=== PATIENT | female | born 1970 | race Two or more races ===

== ENCOUNTER → 2016-11-29 | Outpatient (CLI) | payer BC | END | disposition home or self-care (01) | LOC: EDSTATUS 11-19 13:30 → CFH 08:20 | PROVIDERS: ATTEND Nurse Practitioner Primary Care | DX: Z12.31 Encounter for screening mammogram for malignant neoplasm of breast (principal) | CPT/HCPCS: 77063; G0202 ==

== ENCOUNTER → 2017-01-07 | Outpatient (CLI) | payer BC | END | disposition home or self-care (01) | LOC: CFH 16:11 | PROVIDERS: ATTEND Nurse Practitioner Primary Care | DX: E04.9 Nontoxic goiter, unspecified (principal) | CPT/HCPCS: 76536 ==